=== PATIENT | male | born 1955 | race Two or more races ===

== ENCOUNTER 2023-12-06 17:10 | Emergency (ER) | payer MEDICARE, MEDICAID ==
[~2023-12-06] VITALS: Ht 170.2 cm; Wt 85.4 kg
[2023-12-06 21:40] VITALS: BP 121/70; PULSE 73; RESP 16; TEMP 98.3; O2SAT 98
[2023-12-06] MEDS ORDERED: PRED30TA4 PO (23:10)
[2023-12-06] MEDS ORDERED: INDO50CA82 PO (23:10)
[2023-12-06] MEDS ORDERED: CEPH500C PO (23:15)
[2023-12-06] MEDS: DexAMETHasone SOD PHOS 10MG/1ML VIAL INJ IM ONE (23:21)
[2023-12-06] MEDS: KETOROLAC TROMETH 60MG/2ML VIAL IM ONE (23:22)
== END 2023-12-06 23:29 | disposition home or self-care (01) ==
LOC: ER 17:10
DX: M10.9 Gout, unspecified (principal); N43.3 Hydrocele, unspecified; E11.9 Type 2 diabetes mellitus without complications; I10 Essential (primary) hypertension
CPT/HCPCS: 36415; 76870; 81002; 84550; 96372; 99285; J1100; J1885

== ENCOUNTER 2024-04-11 08:56 | Inpatient (IN) | payer MEDICARE, MEDICAID ==
[~2024-04-11] VITALS: Ht 172.7 cm; Wt 80.0 kg
[~2024-04-11 08:56] MED LIST: CEPH500C PO; DICL1GEL59 EX; HYDR-4902 PO; INDO50CA82 PO; MAGN400T6 PO; METH-1181 PO; METH4PAK PO; NAP500T PO; PRED30TA4 PO
[2024-04-11] MEDS ORDERED: METF-371 PO (09:31)
[2024-04-11] MEDS ORDERED: LOSA-534 PO (09:31)
[2024-04-11 09:52] LABS: Basophils # (auto) 0 10 ^3/uL (0-0.2); Basophils % (auto) 0.5 % (0.0-2.0); Eosinophils # (auto) 0.1 10 ^3/uL (0-0.8); Eosinophils % (auto) 0.8 % (0.0-7.0); Hematocrit 42.9 % (41.0-53.0); Hemoglobin 15.3 g/dL (13.5-17.5); Lymphocytes # (auto) 2.4 10 ^3/uL (0.4-5.4); Lymphocytes % (auto) 26.3 % (10.0-50.0); Mean Corpuscular Hemoglobin 31.8 pg (28.0-32.0); Mean Corpuscular Hgb Conc. 35.6 g/dL (32.0-36.0); Mean Corpuscular Volume 89.3 fL (80.0-100.0); Monocytes % (auto) 10.7 % (0.0-12.0); Neutrophils # (auto) 5.6 10 ^3/uL (1.6-8.6); Neutrophils % (auto) 61.7 % (37.0-80.0); Platelet Count (auto) 167 10^3/uL (140-450); Red Blood Cells 4.81 10^6/uL (4.5-5.90); Red Cell Distribution Width 12.8 % (11.8-14.3)
[2024-04-11 10:40] LABS: Alanine Aminotransferase 39 U/L (7-40); Albumin 4.4 g/dL (3.2-4.8); Alkaline Phosphatase 99 U/L (46-116); Anion Gap 5 (5-15); Aspartate Aminotransferase 17 U/L (13-40); BUN/Creatinine Ratio 23.8 (10.0-20.0); Blood Urea Nitrogen 25 mg/dL (9-23); Calcium 9.6 mg/dL (8.7-10.4); Carbon Dioxide 27 mmol/L (20-30); Chloride 103 mmol/L (98-107); Glucose 196 mg/dL (74-106); Lipase 46 U/L (12-53); Potassium 3.7 mmol/L (3.5-5.1); Sodium 135 mmol/L (136-145)
[2024-04-11 10:41] LABS: Bilirubin, Total 0.8 mg/dL (0.2-1.0); Total Protein 7.1 g/dL (5.7-8.2)
[2024-04-11 10:47] LABS: Urine Bacteria None Seen /hpf (None Seen)
[2024-04-11 11:15] LABS: Urine Blood Negative /uL (Negative); Urine Clarity Clear (Clear); Urine Color Yellow (Yellow); Urine Mucus FEW (None Seen); Urine Protein, UAD Negative (Negative); Urine Specific Gravity 1.024 (1.001-1.035); Urine Urobilinogen Normal (Negative); Urine WBC <1 /hpf (0 - 3)
[2024-04-11] MEDS: AZITHROMYCIN 250 MG TAB PO ONE (12:56)
[2024-04-11] MEDS: cefTRIAXone 1GM/50ML D5W 50 ML IV ONE (12:56)
[2024-04-11] MEDS ORDERED: MORPHINE SULFATE INJ 2 MG/ml SYRG IV PRN ×2 (14:15→14:45)
[2024-04-11] MEDS ORDERED: DEXTROSE (50%) 50ML SYRG IV PRN (14:15)
[2024-04-11] MEDS ORDERED: ACETAMINOPHEN 325 MG TAB PO PRN (14:15)
[2024-04-11] MEDS: SODIUM CHLORIDE 0.9% 1,000 ML IV SCH (14:15)
[2024-04-11] MEDS ORDERED: DOCUSATE SOD 100 MG CAP PO PRN (14:15)
[2024-04-11] MEDS ORDERED: ONDANSETRON HCL 4 MG/2 ML VIAL IV PRN (14:15)
[2024-04-11] MEDS ORDERED: hydrALAZINE HCL 20 MG/ML VL IV PRN (14:15)
[2024-04-11] MEDS ORDERED: NITROGLYCERIN 0.4 MG SL TAB SL PRN (14:45)
[2024-04-11] MEDS: ACCU-CHEK COMFORT CURVE STRIP VI SCH (17:00)
[2024-04-11] MEDS: InsuLIN REG 1unit/0.01ml Soln (100units/ml) SC SCH ×2 (17:00→22:00)
[2024-04-12] MEDS: HYDROcodone-ACET 5/325MG TAB PO PRN (01:13)
[2024-04-12 07:30] VITALS: RESP 16; O2SAT 97
[2024-04-12 07:37] LABS: Basophils # (auto) 0 10 ^3/uL (0-0.2); Basophils % (auto) 0.4 % (0.0-2.0); Eosinophils # (auto) 0.1 10 ^3/uL (0-0.8); Eosinophils % (auto) 1.2 % (0.0-7.0); Hematocrit 42.9 % (41.0-53.0); Hemoglobin 15.1 g/dL (13.5-17.5); Lymphocytes # (auto) 2.1 10 ^3/uL (0.4-5.4); Lymphocytes % (auto) 23.5 % (10.0-50.0); Mean Corpuscular Hgb Conc. 35.2 g/dL (32.0-36.0); Mean Corpuscular Volume 88.2 fL (80.0-100.0); Monocytes # (auto) 0.8 10 ^3/uL (0-1.3); Monocytes % (auto) 8.6 % (0.0-12.0); Neutrophils # (auto) 5.8 10 ^3/uL (1.6-8.6); Neutrophils % (auto) 66.3 % (37.0-80.0); Nucleated Red Blood Cells % 0.2 %; Platelet Count (auto) 177 10^3/uL (140-450); Red Blood Cells 4.86 10^6/uL (4.5-5.90); White Blood Cell 8.8 10^3/uL (4.4-10.8)
[2024-04-12 07:42] LABS: Alanine Aminotransferase 33 U/L (7-40); Albumin 4.3 g/dL (3.2-4.8); Alkaline Phosphatase 84 U/L (46-116); Anion Gap 8 (5-15); BUN/Creatinine Ratio 23.1 (10.0-20.0); Blood Urea Nitrogen 21 mg/dL (9-23); Calcium 9.7 mg/dL (8.7-10.4); Carbon Dioxide 26 mmol/L (20-30); Chloride 102 mmol/L (98-107); Glucose 166 mg/dL (74-106); Potassium 3.8 mmol/L (3.5-5.1); Sodium 136 mmol/L (136-145)
[2024-04-12 07:43] LABS: Aspartate Aminotransferase 11 U/L (13-40); Bilirubin, Total 1.2 mg/dL (0.2-1.0); Total Protein 6.9 g/dL (5.7-8.2)
[2024-04-12] MEDS: AZITHROMYCIN 500MG/ 250ML 250 ML IV SCH (09:43)
[2024-04-12] MEDS: ASPirin 81 mg TAB PO SCH (09:43)
[2024-04-12] MEDS: cefTRIAXone 1GM/50ML D5W 50 ML IV ONE (14:00)
[2024-04-12 14:24] LABS: Magnesium 1.7 mg/dL (1.6-2.6)
[2024-04-12 15:31] VITALS: BP 154/89; PULSE 86; RESP 17; TEMP 98.6; O2SAT 95
[2024-04-12 16:00] VITALS: BP 154/89; PULSE 86; RESP 17; TEMP 98.6; O2SAT 95
[2024-04-12] MEDS ORDERED: GLIP5TAB21 PO (18:06)
[2024-04-12] MEDS ORDERED: TAMS0.4C39 PO (18:06)
[2024-04-12] MEDS ORDERED: DUTA0.5C11 PO (18:06)
[2024-04-12] MEDS ORDERED: LOSA-535 PO (18:06)
[2024-04-12] MEDS ORDERED: SITA50TA PO (18:06)
[2024-04-12] MEDS ORDERED: FEBU40TA PO (18:06)
[2024-04-12] MEDS ORDERED: METO-159 PO (18:06)
[2024-04-12] MEDS ORDERED: BACL10TA PO (18:06)
[2024-04-12] MEDS ORDERED: MONT-8 PO (18:06)
[2024-04-12] MEDS ORDERED: GABA-1250 PO (18:06)
[2024-04-12] MEDS ORDERED: HYDR25TA5 PO (18:06)
[2024-04-12] MEDS: LOSARTAN POTASSIUM 50 MG TAB PO ONE (18:51)
[2024-04-12 20:00] VITALS: PULSE 76
[2024-04-12 21:00] VITALS: BP 144/77; PULSE 70; RESP 18; TEMP 98; O2SAT 97
[2024-04-13] VITALS (8 sets, daily range): BP systolic 148–158; BP diastolic 73–86; PULSE 67–83; RESP 16–20; TEMP 97.8–98.5; O2SAT 96–97
[2024-04-13 00:06] LABS: Rapid Influenza A Negative (Negative); Rapid Influenza B Negative (Negative)
[2024-04-13 00:07] LABS: COVID19 ANTIGEN SOFIA FIA NEGATIVE (NEGATIVE)
[2024-04-13] MEDS: cefTRIAXone 1GM/50ML D5W 50 ML IV SCH (08:39)
[2024-04-13] MEDS: LOSARTAN POTASSIUM 50 MG TAB PO SCH (08:39)
[2024-04-14 01:00] VITALS: BP 150/76; PULSE 70; RESP 20; TEMP 97.7; O2SAT 97
[2024-04-14 05:00] VITALS: BP 160/81; PULSE 72; RESP 16; TEMP 97.7; O2SAT 97
[2024-04-14 08:00] VITALS: PULSE 69; PULSE 86; RESP 19; O2SAT 96
[2024-04-14 09:00] VITALS: BP 146/83; PULSE 69; RESP 19; TEMP 98; O2SAT 96
[2024-04-14] MEDS ORDERED: AZIT500T66 PO (12:02)
[2024-04-14 13:27] VITALS: BP 146/83; PULSE 69; RESP 19; TEMP 98; O2SAT 96
== END 2024-04-14 14:17 | disposition home or self-care (01) | DRG 205 ==
LOC: ER 08:56 → TELE 14:35 → TELE-WESTW 04-12 15:10
PROVIDERS: ADMIT Nurse Practitioner Family; ATTEND Family Medicine
DX: M94.0 Chondrocostal junction syndrome [Tietze] (principal); J15.69 Pneumonia due to other Gram-negative bacteria; J15.9 Unspecified bacterial pneumonia; E11.65 Type 2 diabetes mellitus with hyperglycemia; I10 Essential (primary) hypertension; M10.9 Gout, unspecified; N40.0 Benign prostatic hyperplasia without lower urinary tract symptoms; E11.40 Type 2 diabetes mellitus with diabetic neuropathy, unspecified; E66.9 Obesity, unspecified; Z68.26 Body mass index [BMI] 26.0-26.9, adult
CPT/HCPCS: 36415; 71046; 76705; 80053; 80061; 81001; 82962; 83036; 83690; 83735; 84443; 84484; 85025; 87426; 87804; 93005; 93306; 96365; G0378; J1815

== ENCOUNTER → 2024-05-17 | Outpatient (CLI) | payer MEDICARE, MEDICAID ==
[~2024-05-17] MED LIST changes: +AZIT500T66 PO; +BACL10TA PO; -CEPH500C PO; +DUTA0.5C11 PO; +FEBU40TA PO; +GABA-1250 PO; +GLIP5TAB21 PO; +HYDR25TA5 PO; -INDO50CA82 PO; +LOSA-535 PO; -METH-1181 PO; -METH4PAK PO; +METO-159 PO; +MONT-8 PO; -PRED30TA4 PO; +SITA50TA PO; +TAMS0.4C39 PO
[2024-05-17 12:11] LABS: Urine Bacteria None Seen /hpf (None Seen)
[2024-05-17 13:15] LABS: Urine Blood Negative /uL (Negative); Urine Clarity Clear (Clear); Urine Color Yellow (Yellow); Urine Hyaline Cast FEW /lpf (0 - 2); Urine Mucus FEW (None Seen); Urine Protein, UAD Negative (Negative); Urine Specific Gravity 1.024 (1.001-1.035); Urine Urobilinogen Normal (Negative); Urine WBC <1 /hpf (0 - 3); Urine pH 5.5 (5.0-9.0)
[2024-05-17 13:36] LABS: Micro Albumin < 3.0 mg/L (<30.0)
== END | disposition home or self-care (01) ==
LOC: LAB 12:08
PROVIDERS: ATTEND Internal Medicine
DX: E11.65 Type 2 diabetes mellitus with hyperglycemia (principal)
CPT/HCPCS: 81001; 82043; 82274